=== PATIENT | male | born 1955 | race Caucasian/White ===

== ENCOUNTER 2017-10-02 10:45 | Inpatient (IN) | payer MEDICARE ==
[2017-10-02] MEDS ORDERED: Sodium Chloride 0.9% 10 ML Syringe FLUSH PRN (11:20)
[2017-10-02] MEDS ORDERED: fentaNYL 100 MCG/2 ML SDV IVPUSH ONE ×2 (11:21→13:54)
[2017-10-02] MEDS ORDERED: Ondansetron 4 MG/2 ML SDV IVPUSH ONE (11:21)
--- NOTE | 2017-10-02 11:24 | EDM.PDOC ---
ED HPI GENERAL MEDICAL PROBLEM - General Chief Complaint: Abdominal Pain Stated Complaint: PAIN IN STOMACH AREA MORE ON RIGHT SIDE Time Seen by Provider: 10/02/17 11:16 Source of Information: Reports: Patient, Family, RN Notes Reviewed History Limitations: Reports: No Limitations - History of Present Illness INITIAL COMMENTS - FREE TEXT/NARRATIVE: 62-year-old gentleman presents to the emergency department today with complaint of right lower quadrant pain, he states the pain has been building for the last 3 days initially felt he had food poisoning does have nausea and vomiting but the pain now has localized in the right lower quadrant past surgical history includes hernia repair on the right side. No shortness breath chest pain or fevers Right Lower Abdomen Pain Score (Numeric/FACES): 8 - Related Data Allergies Allergy/AdvReac Type Severity Reaction Status Date / Time codeine Allergy Swelling Verified 10/02/17 11:00 Home Meds: Home Meds Aspirin [[place] Aspirin] 81 mg PO DAILY 10/02/17 [History] Clopidogrel [Plavix] 75 mg PO DAILY 10/02/17 [History] Enalapril [Vasotec] 20 mg PO DAILY 10/02/17 [History] Latanoprost [Xalatan] 2.5 ml OP DAILY 10/02/17 [History] atorvaSTATin [Lipitor] 40 mg PO DAILY 10/02/17 [History] Past Medical History HEENT History: Reports: Other (See Below) Other HEENT History: lageally blind both eyes Cardiovascular History: Reports: High Cholesterol, Hypertension Respiratory History: Reports: PE Musculoskeletal History: Reports: Fracture Neurological History: Reports: CVA - Infectious Disease History Infectious Disease History: Reports: Chicken Pox, Measles, Mumps - Past Surgical History HEENT Surgical History: Reports: Tonsillectomy GI Surgical History: Reports: Colonoscopy, Hernia, Inguinal Social & Family History - Tobacco Use Smoking Status *Q: Never Smoker Second Hand Smoke Exposure: No - Caffeine Use Caffeine Use: Reports: Coffee, Soda - Recreational Drug Use Recreational Drug Use: No ED ROS GENERAL - Review of Systems Review Of Systems: See Below Constitutional: Reports: No Symptoms HEENT: Reports: No Symptoms Respiratory: Reports: No Symptoms Cardiovascular: Reports: No Symptoms GI/Abdominal: Reports: Abdominal Pain, Flatus, Nausea, Vomiting : Reports: No Symptoms Musculoskeletal: Reports: No Symptoms Skin: Reports: No Symptoms ED EXAM, GI/ABD - Physical Exam Exam: See Below Exam Limited By: No Limitations General Appearance: Alert, WD/WN, No Apparent Distress Eyes: Bilateral: Normal Appearance Respiratory/Chest: No Respiratory Distress, Lungs Clear, Normal Breath Sounds, No Accessory Muscle Use, Chest Non-Tender Cardiovascular: Regular Rate, Rhythm, No Murmur GI/Abdominal Exam: Soft, Tender (Tender right lower quadrant), Other (Psoas sign positive, obturator sign positive, heeltap negative) Course - Vital Signs Last Recorded V/S: Last Vital Signs Temp 99.4 F 10/02/17 11:13 Pulse 109 H 10/02/17 11:13 Resp 16 10/02/17 11:13 BP 121/81 10/02/17 11:13 Pulse Ox 97 10/02/17 11:13 - Orders/Labs/Meds Orders: Active Orders 24 hr Category Date Time Status Peripheral IV Care [RC] . DIRECTED Care 10/02/17 11:20 Active UA W/MICROSCOPIC [URIN] Urgent Lab 10/02/17 11:20 Ordered Iopamidol [Isovue-300 (61%)] Med 10/02/17 11:27 Active 141 ml IV . DIRECTED PRN Lactated Ringers [Ringers, Lactated] 1,000 ml Med 10/02/17 11:30 Active IV ASDIRECTED Sodium Chloride 0.9% [Normal Saline] 83 ml Med 10/02/17 11:30 Active IV ASDIRECTED Sodium Chloride 0.9% [Saline Flush] Med 10/02/17 11:20 Active 10 ml FLUSH ASDIRECTED PRN Peripheral IV Insertion Adult [OM.PC] Urgent Oth 10/02/17 11:20 Ordered Medication Orders Lactated Ringer's (Ringers, Lactated) 1,000 mls @ 500 mls/hr IV ASDIRECTED СВЕТЛАНА Last Admin: 10/02/17 11:42 Dose: 500 mls/hr Sodium Chloride (Normal Saline) 83 mls @ 3.5 mls/sec IV ASDIRECTED [facility] Last Admin: 10/02/17 12:00 Dose: 3.5 mls/sec Iopamidol (Isovue-300 (61%)) 141 ml IV . DIRECTED PRN PRN Reason: RADIOLOGY EXAM Stop: 10/03/17 11:28 Last Admin: 10/02/17 12:00 Dose: 141 ml Sodium Chloride (Saline Flush) 10 ml FLUSH ASDIRECTED PRN PRN Reason: Keep Vein Open Last Admin: 10/02/17 11:59 Dose: 10 ml Labs: Laboratory Tests 10/02/17 10/02/17 10/02/17 Range/Units 11:28 11:28 11:28 WBC 22.7 H (4.5-11.0) K/uL RBC 5.05 (4.30-5.90) M/uL Hgb 15.9 H (12.0-15.0) g/dL Hct 45.7 (40.0-54.0) % MCV 91 (80-98) fL MCH 32 H (27-31) pg MCHC 35 (32-36) % Plt Count 233 (150-400) K/uL Neut % (Auto) 85 H (36-66) % Lymph % (Auto) 5 L (24-44) % [place] % (Auto) 10 H (2-6) % Eos % (Auto) 0 L (2-4) % Baso % (Auto) 0 (0-1) % Sodium 138 L (140-148) mmol/L Potassium 3.8 (3.6-5.2) mmol/L Chloride 102 (100-108) mmol/L Carbon Dioxide 25 (21-32) mmol/L Anion Gap 14.8 H (5.0-14.0) mmol/L BUN 20 H (7-18) mg/dL Creatinine 1.1 (0.8-1.3) mg/dL Est Cr Clr Drug Dosing 68.23 mL/min Estimated GFR (MDRD) > 60 (>60) BUN/Creatinine Ratio Not Reportable Glucose 129 H (74-106) mg/dL Lactic Acid 2.4 H (0.4-2.0) mmol/L Calcium 8.5 (8.5-10.1) mg/dL Total Bilirubin 2.0 H (0.2-1.0) mg/dL AST 20 (15-37) U/L ALT 40 (12-78) U/L Alkaline Phosphatase 100 (46-116) U/L Troponin I < 0.017 (0.000-0.056) ng/mL Total Protein 7.8 (6.4-8.2) g/dL Albumin 3.4 (3.4-5.0) g/dL Globulin 4.4 H (2.3-3.5) g/dL Albumin/Globulin Ratio 0.8 L (1.2-2.2) Lipase 54 L (73-393) U/L Meds: Medications Generic Name Dose Route Start Last Admin Trade Name Freq PRN Reason Stop Dose Admin Lactated Ringer's 1,000 mls @ 500 mls/hr 10/02/17 11:30 10/02/17 11:42 Ringers, Lactated IV 500 mls/hr ASDIRECTED СВЕТЛАНА Administration Sodium Chloride 83 mls @ 3.5 mls/sec 10/02/17 11:30 10/02/17 12:00 Normal Saline IV 3.5 mls/sec ASDIRECTED СВЕТЛАНА Administration Iopamidol 141 ml 10/02/17 11:27 10/02/17 12:00 Isovue-300 (61%) IV 10/03/17 11:28 141 ml . DIRECTED PRN Administration RADIOLOGY EXAM Sodium Chloride 10 ml 10/02/17 11:20 10/02/17 11:59 Saline Flush FLUSH 10 ml ASDIRECTED PRN Administration Keep Vein Open Discontinued Medications Generic Name Dose Route Start Last Admin Trade Name Willardq PRN Reason Stop Dose Admin Fentanyl 50 mcg 10/02/17 11:21 10/02/17 11:45 Sublimaze IVPUSH 10/02/17 11:22 50 mcg ONETIME ONE Administration Fentanyl 50 mcg 10/02/17 13:54 Sublimaze IVPUSH 10/02/17 13:55 ONETIME ONE Ondansetron HCl 4 mg 10/02/17 11:21 10/02/17 11:43 Zofran IVPUSH 10/02/17 11:22 4 mg ONETIME ONE Administration Sodium Chloride 10 ml 10/02/17 11:27 Saline Flush FLUSH 10/02/17 11:28 ONETIME ONE Departure - Departure Time of Disposition: 13:57 Disposition: Admitted As Inpatient 67 Condition: Good Clinical Impression: Cholecystitis - Discharge Information Referrals: PCP,None [Primary Care Provider] - Forms: ED Department Discharge - My Orders Last 24 Hours: My Active Orders 10/02/17 11:20 Peripheral IV Care [RC] . DIRECTED UA W/MICROSCOPIC [URIN] Urgent Sodium Chloride 0.9% [Saline Flush] 10 ml FLUSH ASDIRECTED PRN Peripheral IV Insertion Adult [OM.PC] Urgent 10/02/17 11:27 Iopamidol [Isovue-300 (61%)] 141 ml IV . DIRECTED PRN 10/02/17 11:30 Lactated Ringers [Ringers, Lactated] 1,000 ml IV ASDIRECTED Sodium Chloride 0.9% [Normal Saline] 83 ml IV ASDIRECTED - Assessment/Plan Last 24 Hours: My Active Orders 10/02/17 11:20 Peripheral IV Care [RC] . DIRECTED UA W/MICROSCOPIC [URIN] Urgent Sodium Chloride 0.9% [Saline Flush] 10 ml FLUSH ASDIRECTED PRN Peripheral IV Insertion Adult [OM.PC] Urgent 10/02/17 11:27 Iopamidol [Isovue-300 (61%)] 141 ml IV . DIRECTED PRN 10/02/17 11:30 Lactated Ringers [Ringers, Lactated] 1,000 ml IV ASDIRECTED Sodium Chloride 0.9% [Normal Saline] 83 ml IV ASDIRECTED Plan: Assessment Acuity = acute Site and laterality = acute cholecystitis with cholelithiasis impacted neck gallbladder Etiology = impacted stone Manifestations = abdominal pain Location of injury = Home Lab values = WBC elevated at 22.7 consistent leukocytosis lactic acid elevated 2.4 consistent with lactic acidosis total bilirubin elevated at 2.0 consistent with hyperbilirubinemia Plan Called discussed case with Dr. Barclay general surgery he agreed to come and evaluate patient hospital for surgical intervention This note was dictated using [employer] voice recognition software please call with any questions on syntax or grammar.
[2017-10-02] MEDS ORDERED: Sodium Chloride 0.9% 10 ML Syringe FLUSH ONE (11:27)
[2017-10-02] MEDS ORDERED: Iopamidol 612 MG/ML 150 ML Bottle IV PRN (11:27)
[2017-10-02] MEDS ORDERED: Lactated Ringers 1,000 ML IV SCH (11:30)
--- NOTE | 2017-10-02 12:38 | CT ---
Abdomen Pelvis w Cont Total DLP Negative. mGycm. INDICATION: Right lower quadrant pain COMPARISON: None. FINDINGS: Moderately distended gallbladder with wall thickening and surrounding inflammatory change. Findings suspicious for acute cholecystitis. There is minimal high density in the nondependent portio n the bladder could represent a polyp or stone. Common bile duct is normal in caliber. Small left caitie al cyst. Dense calcification of the spleen. Normal appendix. Mildly dilated loop of small bowel in th e low abdomen without transition point is nonspecific. Small amount of free fluid in the pelvis. Smal l fat-containing periumbilical hernia. Arterial calcifications. Tiny right renal cyst. Pleural calcif ication with atelectasis in the lower lungs. Exam otherwise unremarkable. IMPRESSION: Findings suspicious for acute cholecystitis. Right upper quadrant ultrasound may be helpf ul. Nonspecific mildly dilated loop of small bowel in the low abdomen. Free fluid in the pelvis. Findings called to the emergency department at 12:30 PM on 10/01/2017.
--- NOTE | 2017-10-02 13:34 | US ---
Abdomen Ltd INDICATION: ct shows cholecystitis with right lower quadrant p FINDINGS: Normal hepatic echotexture. No intra- or extrahepatic bile duct dilatation. The gallbladder is distended and contains a large impacted stone measuring 2.3 cm in the neck with sludge and additi onal smaller stones. Gallbladder wall thickening measuring 7 mm. Positive sonographic Crain sign. Ao rta and IVC are not well visualized. Pancreas is normal where seen. Survey views of the right kidney are negative for hydronephrosis. IMPRESSION: Acute cholecystitis.
--- NOTE | 2017-10-02 15:00 | PCM.HP ---
H&P History of Present Illness - General Date of Service: 10/02/17 Admit Problem/Dx: Admission Diagnosis/Problem Admission Diagnosis/Problem Acute cholecystitis due to biliary calculus Source of Information: Patient, Provider History Limitations: Reports: No Limitations - History of Present Illness Initial Comments - Free Text/Narative: Garrett presents to the emergency room today with 2 days of progressive right upper quadrant abdominal pain as well as intermittent nausea and vomiting. He initially had mild achy right upper quadrant pain a couple of days ago. This woke him from sleep. He did not take anything to make it better. The pain did eventually go away on its own. It did not radiate when present. Yesterday he had several episodes of nausea and vomiting but did not have much in the way of abdominal pain. Overnight he developed moderately severe right upper quadrant abdominal pain associated with nausea. There was a constant achy pain as well as sharp intermittent pains. The pain did not radiate from the right upper quadrant. Again he did not take anything to make the pain feel better. He has not had anything to eat or drink since yesterday. No subjective fevers or chills. No change in bowel or bladder habits. Workup in the emergency room revealed an elevated white blood cell count on laboratory testing and gallbladder ultrasound suggested acute cholecystitis with a large stone impacted in the neck of the gallbladder. He will be admitted for IV antibiotics, hydration and surgical intervention. Right Lower Abdomen Pain Score (Numeric/FACES): 8 - Related Data Allergies/Adverse Reactions: Allergies Allergy/AdvReac Type Severity Reaction Status Date / Time codeine Allergy Swelling Verified 10/02/17 11:00 Home Medications: Home Meds Aspirin [[place] Aspirin] 81 mg PO DAILY 10/02/17 [History] Clopidogrel [Plavix] 75 mg PO DAILY 10/02/17 [History] Enalapril [Vasotec] 20 mg PO DAILY 10/02/17 [History] Latanoprost [Xalatan] 2.5 ml OP DAILY 10/02/17 [History] atorvaSTATin [Lipitor] 40 mg PO DAILY 10/02/17 [History] Past Medical History HEENT History: Reports: Other (See Below) Other HEENT History: lageally blind both eyes Cardiovascular History: Reports: High Cholesterol, Hypertension Respiratory History: Reports: PE Musculoskeletal History: Reports: Fracture Neurological History: Reports: CVA - Infectious Disease History Infectious Disease History: Reports: Chicken Pox, Measles, Mumps - Past Surgical History HEENT Surgical History: Reports: Tonsillectomy GI Surgical History: Reports: Colonoscopy, Hernia, Inguinal Social & Family History - Family History GI: Reports: Cholelithiasis - Tobacco Use Smoking Status *Q: Never Smoker Second Hand Smoke Exposure: No - Caffeine Use Caffeine Use: Reports: Coffee, Soda - Alcohol Use Alcohol Use History: No - Recreational Drug Use Recreational Drug Use: No H&P Review of Systems - Review of Systems: Review Of Systems: See Below Free Text/Narrative: A complete 12 point review of systems was obtained. Pertinent positives and negatives are noted in the history of present illness. All other systems were reviewed and were negative except as noted. Exam - Exam Exam: See Below - Vital Signs Vital Signs: Last Vital Signs Temp 38.3 C H 10/02/17 13:55 Pulse 82 10/02/17 13:55 Resp 16 10/02/17 13:55 BP 119/60 10/02/17 13:55 Pulse Ox 95 10/02/17 13:55 Weight: 94 kg - Exam Quality Assessment: No: Supplemental Oxygen General: Alert, Oriented, Cooperative. No: Mild Distress HEENT: Conjunctiva Clear, Mucosa Moist & [place]. No: Scleral Icterus Neck: Supple, Trachea Midline. No: Lymphadenopathy Lungs: Clear to Auscultation, Normal Respiratory Effort Cardiovascular: Regular Rate, Regular Rhythm. No: Systolic Murmur GI/Abdominal Exam: Normal Bowel Sounds, Soft, No Distention, Tender (Moderate right upper quadrant tenderness) Back Exam: Full Range of Motion Extremities: No Pedal Edema. No: Increased Warmth Peripheral Pulses: 2+: Dorsalis Pedis (L), Dorsalis Pedis (R) Skin: Warm, Dry Neuro Extensive - Mental Status: Alert, Oriented x3, Nl Response to Commands Neuro Extensive - Motor, Sensory, Reflexes: CN II-XII Intact. No: Dysarthria, Abnormal Motor, Tremor Psychiatric: Alert, Normal Affect - Patient Data Lab Results Last 24 hrs: Laboratory Results - last 24 hr 10/02/17 10/02/17 10/02/17 Range/Units 11:28 11:28 11:28 WBC 22.7 H (4.5-11.0) K/uL RBC 5.05 (4.30-5.90) M/uL Hgb 15.9 H (12.0-15.0) g/dL Hct 45.7 (40.0-54.0) % MCV 91 (80-98) fL MCH 32 H (27-31) pg MCHC 35 (32-36) % Plt Count 233 (150-400) K/uL Neut % (Auto) 85 H (36-66) % Lymph % (Auto) 5 L (24-44) % [place] % (Auto) 10 H (2-6) % Eos % (Auto) 0 L (2-4) % Baso % (Auto) 0 (0-1) % Sodium 138 L (140-148) mmol/L Potassium 3.8 (3.6-5.2) mmol/L Chloride 102 (100-108) mmol/L Carbon Dioxide 25 (21-32) mmol/L Anion Gap 14.8 H (5.0-14.0) mmol/L BUN 20 H (7-18) mg/dL Creatinine 1.1 (0.8-1.3) mg/dL Est Cr Clr Drug Dosing 68.23 mL/min Estimated GFR (MDRD) > 60 (>60) BUN/Creatinine Ratio Not Reportable Glucose 129 H (74-106) mg/dL Lactic Acid 2.4 H (0.4-2.0) mmol/L Calcium 8.5 (8.5-10.1) mg/dL Total Bilirubin 2.0 H (0.2-1.0) mg/dL AST 20 (15-37) U/L ALT 40 (12-78) U/L Alkaline Phosphatase 100 (46-116) U/L Troponin I < 0.017 (0.000-0.056) ng/mL Total Protein 7.8 (6.4-8.2) g/dL Albumin 3.4 (3.4-5.0) g/dL Globulin 4.4 H (2.3-3.5) g/dL Albumin/Globulin Ratio 0.8 L (1.2-2.2) Lipase 54 L (73-393) U/L Result Diagrams: 10/02/17 11:28 10/02/17 11:28 Imaging Impressions Last 24 hrs: Right upper quadrant ultrasound - images personally reviewed - there is evidence for cholelithiasis as well as an enlarged gallbladder with a gallstone lodged in the neck of the gallbladder. Gallbladder wall is thick and there is some pericholecystic fluid present. *Q Meaningful Use (ADM) - VTE *Q VTE Pharmacological Contraindications *Q: Patient Scheduled Surgery - VTE Risk Assess *Q Each Risk Factor Represents 1 Point: None Total Score 1 Point Risk Factors: 0 Each Risk Factor Represents 2 Points: Age 60 - 74 Years, Laparoscopic surgery greater than 45 minutes Total Score 2 Point Risk Factors: 4 Each Risk Factor Represents 3 Points: History of DVT/PE Total Score 3 Point Risk Factors: 3 Each Risk Factor Represents 5 Points: None Total Score 5 Point Risk Factors: 0 Venous Thromboembolism Risk Factor Score *Q: 7 - Problem List (1) Acute cholecystitis due to biliary calculus SNOMED Code(s): 09436003451834 ICD Code: K80.00 - CALCULUS OF GALLBLADDER W ACUTE CHOLECYST W/O OBSTRUCTION Status: Acute Current Visit: Yes (2) History of pulmonary embolism SNOMED Code(s): 036352080 ICD Code: Z86.711 - PERSONAL HISTORY OF PULMONARY EMBOLISM Status: Chronic Current Visit: Yes (3) Cerebrovascular disease SNOMED Code(s): 43516227 ICD Code: I67.9 - CEREBROVASCULAR DISEASE, UNSPECIFIED Status: Chronic Current Visit: Yes Problem List Initiated/Reviewed/Updated: Yes Orders Last 24hrs: Active Orders 24 hr Category Date Time Status Patient Status Manage Transfer [TRANSFER] Routine ADT 10/02/17 14:47 Ordered Peripheral IV Care [RC] . DIRECTED Care 10/02/17 11:20 Active UA W/MICROSCOPIC [URIN] Urgent Lab 10/02/17 11:20 Ordered Iopamidol [Isovue-300 (61%)] Med 10/02/17 11:27 Active 141 ml IV . DIRECTED PRN Lactated Ringers [Ringers, Lactated] 1,000 ml Med 10/02/17 11:30 Active IV ASDIRECTED Sodium Chloride 0.9% [Normal Saline] 83 ml Med 10/02/17 11:30 Active IV ASDIRECTED Sodium Chloride 0.9% [Saline Flush] Med 10/02/17 11:20 Active 10 ml FLUSH ASDIRECTED PRN Peripheral IV Insertion Adult [OM.PC] Urgent Oth 10/02/17 11:20 Ordered Resuscitation Status Routine Resus Stat 10/02/17 14:49 Ordered Medication Orders Lactated Ringer's (Ringers, Lactated) 1,000 mls @ 500 mls/hr IV ASDIRECTED [facility] Last Admin: 10/02/17 11:42 Dose: 500 mls/hr Sodium Chloride (Normal Saline) 83 mls @ 3.5 mls/sec IV ASDIRECTED [facility] Last Admin: 10/02/17 12:00 Dose: 3.5 mls/sec Iopamidol (Isovue-300 (61%)) 141 ml IV . DIRECTED PRN PRN Reason: RADIOLOGY EXAM Stop: 10/03/17 11:28 Last Admin: 10/02/17 12:00 Dose: 141 ml Sodium Chloride (Saline Flush) 10 ml FLUSH ASDIRECTED PRN PRN Reason: Keep Vein Open Last Admin: 10/02/17 11:59 Dose: 10 ml Assessment/Plan Comment:: ASSESSMENT AND PLAN - Acute cholecystitis with cholelithiasis - large impacted stone in the neck of the gallbladder. White blood cell count is elevated but not currently febrile. He would benefit from hydration, IV antibiotics as well as surgical intervention. He appears to be an appropriate surgical candidate. Chronic medical problems have been stable with no recent acute issues. No history of difficulty with anesthesia. He does have a history of postoperative DVT and pulmonary embolism and I believe would benefit from a short course of anticoagulation postoperatively. 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 No recent issues with his lungs and not on long-term anticoagulation. -Consider 10 days of low-dose enoxaparin after the hospital stay History of cerebrovascular disease - patient reports history of a stroke that led to loss of peripheral vision. This happened about 4 years ago and he has been stable since that time. He is currently on dual antiplatelet therapy. -Continue aspirin -Hold clopidogrel tomorrow and restart as soon as possible after surgery -Continue VIRGILIO inhibitor for blood pressure control Maintenance issues - - DVT prophylaxis - mechanical with upcoming surgery - GI prophylaxis - not indicated - Nutrition - clear liquids this afternoon, nothing by mouth after midnight - Boyle catheter - not indicated CODE STATUS - full code Admission justification - This patient will be admitted for inpatient services and is medically appropriate meeting medical necessity for inpatient admission as outlined in my documentation. I reasonably expect the patient will require inpatient services that span a period time over 2 midnights. I reasonably expect this patient to be discharged or transferred within 96 hours after admission to the [facility]. Disposition - I would anticipate discharged home in a couple of days Primary care physician - no local primary care Alon Borden M.D.
[2017-10-02] MEDS ORDERED: oxyCODONE 5 MG Tab PO PRN (15:38)
[2017-10-02] MEDS ORDERED: Acetaminophen 325 MG Tab PO PRN (15:38)
[2017-10-02] MEDS ORDERED: Ondansetron 4 MG Tab.DIS PO PRN (15:38)
[2017-10-02] MEDS: HYDROmorphone 0.5 MG/0.5 ML Syringe IVPUSH PRN ×2 (16:27→21:45)
[2017-10-02] MEDS: Piperacillin/Tazobactam/Dext 3.375 GM in Premix Bag 1 BAG IV SCH ×2 (16:51→21:44)
[2017-10-02] MEDS: Latanoprost 0.005% Ophth Soln 2.5 ML Bottle EYERT SCH (18:11)
[2017-10-02] MEDS: Sodium Chloride 0.9% 1,000 ML IV SCH (21:44)
[2017-10-03] MEDS: Piperacillin/Tazobactam/Dext 3.375 GM in Premix Bag 1 BAG IV SCH ×4 (03:48→22:15)
[2017-10-03] MEDS: HYDROmorphone 0.5 MG/0.5 ML Syringe IVPUSH PRN (07:25)
--- NOTE | 2017-10-03 08:33 | PN ---
DATE OF SERVICE: 10/03/2017 SUBJECTIVE: Garrett is n.p.o. He will be having a cholecystectomy early afternoon today. Temp max 101.9. States his pain is controlled. He is using Dilaudid for pain. Currently on IV antibiotics. REVIEW OF SYSTEMS: Remainder of review of systems negative for any pertinent positives or negatives. OBJECTIVE: GENERAL: Garrett Cameron is a 62-year-old male. He is alert and orientated. VITAL SIGNS: TPR 97.8, 67, 16. Blood pressure 99/49. HEENT: Negative. He is legally blind; has no peripheral vision. He can see something is right in front of him. This occurred after a stroke. NECK: Supple. HEART: Regular rate and rhythm. LUNGS: Clear. ABDOMEN: Tenderness in the right upper quadrant. Slightly distended. EXTREMITIES: Without peripheral edema. Full range of motion. NEURO: Intact. PSYCHIATRIC: Mood and affect appropriate. SKIN: Without rash. ASSESSMENT: Cholecystitis. Bilirubin is 2.2. PLAN: Scheduled for laparoscopic, possible laparotomy, cholecystectomy. General anesthesia. Case to follow today. Remain n.p.o. We will evaluate p.r.n. or in a.m. Chiquita Whitney PA-C /[id number]
[2017-10-03] MEDS: atorvaSTATin 20 MG Tab PO SCH ×2 (10:00→10:35)
[2017-10-03] MEDS: Aspirin 81 MG Tab.EC PO SCH ×2 (10:01→10:36)
--- NOTE | 2017-10-03 10:22 | PCM.PN ---
- General Info Date of Service: 10/03/17 Functional Status: Reports: Pain Controlled - Review of Systems General: Reports: Fever Gastrointestinal: Reports: Abdominal Pain Systems Review Comment:: Patient did have a fever overnight but no acute events. Still has mild to moderate right upper quadrant pain which is stable compared to yesterday. No nausea or vomiting. White blood cell count has improved from yesterday. Tolerating current antibiotics. Surgical intervention planned for later in the day. - Patient Data Vitals - Most Recent: Last Vital Signs Temp 36.6 C 10/03/17 07:00 Pulse 67 10/03/17 07:00 Resp 16 10/03/17 07:00 BP 99/49 L 10/03/17 07:00 Pulse Ox 93 L 10/03/17 07:00 Weight - Most Recent: 94 kg I&O - Last 24 Hours: Intake & Output 10/02/17 10/03/17 10/03/17 22:59 06:59 14:59 Intake Total 100 1030 Output Total 300 300 Balance -200 730 Lab Results Last 24 Hours: Laboratory Results - last 24 hr 10/02/17 10/02/17 10/02/17 Range/Units 11:28 11:28 11:28 WBC 22.7 H (4.5-11.0) K/uL RBC 5.05 (4.30-5.90) M/uL Hgb 15.9 H (12.0-15.0) g/dL Hct 45.7 (40.0-54.0) % MCV 91 (80-98) fL MCH 32 H (27-31) pg MCHC 35 (32-36) % Plt Count 233 (150-400) K/uL Neut % (Auto) 85 H (36-66) % Lymph % (Auto) 5 L (24-44) % [place] % (Auto) 10 H (2-6) % Eos % (Auto) 0 L (2-4) % Baso % (Auto) 0 (0-1) % Sodium 138 L (140-148) mmol/L Potassium 3.8 (3.6-5.2) mmol/L Chloride 102 (100-108) mmol/L Carbon Dioxide 25 (21-32) mmol/L Anion Gap 14.8 H (5.0-14.0) mmol/L BUN 20 H (7-18) mg/dL Creatinine 1.1 (0.8-1.3) mg/dL Est Cr Clr Drug Dosing 68.23 mL/min Estimated GFR (MDRD) > 60 (>60) BUN/Creatinine Ratio Not Reportable Glucose 129 H (74-106) mg/dL Lactic Acid 2.4 H (0.4-2.0) mmol/L Calcium 8.5 (8.5-10.1) mg/dL Total Bilirubin 2.0 H (0.2-1.0) mg/dL AST 20 (15-37) U/L ALT 40 (12-78) U/L Alkaline Phosphatase 100 (46-116) U/L Troponin I < 0.017 (0.000-0.056) ng/mL Total Protein 7.8 (6.4-8.2) g/dL Albumin 3.4 (3.4-5.0) g/dL Globulin 4.4 H (2.3-3.5) g/dL Albumin/Globulin Ratio 0.8 L (1.2-2.2) Lipase 54 L (73-393) U/L Urine Color Urine Appearance Urine pH (4.5-8.0) Ur Specific [place] (1.008-1.030) Urine Protein (NEGATIVE) mg/dL Urine Glucose (UA) (NEGATIVE) mg/dL Urine Ketones (NEGATIVE) mg/dL Urine Occult Blood (NEGATIVE) Urine Nitrite (NEGAITVE) Urine Bilirubin (NEGATIVE) Urine Urobilinogen (NORMAL) mg/dL Ur Leukocyte Esterase (NEGATIVE) Urine RBC (0-5) Urine WBC (0-5) Ur Epithelial Cells Amorphous Sediment Urine Bacteria Urine Mucus 10/02/17 10/03/17 10/03/17 Range/Units 15:24 04:00 04:00 WBC 16.1 H (4.5-11.0) K/uL RBC 4.25 L (4.30-5.90) M/uL Hgb 13.2 D (12.0-15.0) g/dL Hct 39.2 L (40.0-54.0) % MCV 92 (80-98) fL MCH 31 (27-31) pg MCHC 34 (32-36) % Plt Count 177 (150-400) K/uL Neut % (Auto) (36-66) % Lymph % (Auto) (24-44) % [place] % (Auto) (2-6) % Eos % (Auto) (2-4) % Baso % (Auto) (0-1) % Sodium 139 L (140-148) mmol/L Potassium 3.6 (3.6-5.2) mmol/L Chloride 103 (100-108) mmol/L Carbon Dioxide 26 (21-32) mmol/L Anion Gap 13.6 (5.0-14.0) mmol/L BUN 24 H (7-18) mg/dL Creatinine 1.2 (0.8-1.3) mg/dL Est Cr Clr Drug Dosing 62.54 mL/min Estimated GFR (MDRD) > 60 (>60) BUN/Creatinine Ratio Glucose 105 (74-106) mg/dL Lactic Acid (0.4-2.0) mmol/L Calcium 7.5 L (8.5-10.1) mg/dL Total Bilirubin 2.2 H (0.2-1.0) mg/dL AST 21 (15-37) U/L ALT 28 (12-78) U/L Alkaline Phosphatase 73 (46-116) U/L Troponin I (0.000-0.056) ng/mL Total Protein 5.9 L (6.4-8.2) g/dL Albumin 2.5 L (3.4-5.0) g/dL Globulin 3.4 (2.3-3.5) g/dL Albumin/Globulin Ratio 0.7 L (1.2-2.2) Lipase (73-393) U/L Urine Color Yellow Urine Appearance Clear Urine pH 7.0 (4.5-8.0) Ur Specific [place] 1.005 L (1.008-1.030) Urine Protein Negative (NEGATIVE) mg/dL Urine Glucose (UA) Normal (NEGATIVE) mg/dL Urine Ketones Negative (NEGATIVE) mg/dL Urine Occult Blood Negative (NEGATIVE) Urine Nitrite Negative (NEGAITVE) Urine Bilirubin Small (NEGATIVE) Urine Urobilinogen 1 (NORMAL) mg/dL Ur Leukocyte Esterase Negative (NEGATIVE) Urine RBC 0-5 (0-5) Urine WBC 0-5 (0-5) Ur Epithelial Cells Rare Amorphous Sediment Not seen Urine Bacteria Not seen Urine Mucus Not seen Med Orders - Current: Current Medications Acetaminophen (Tylenol) 650 mg PO Q4H PRN PRN Reason: Pain (Mild 1-3)/fever Last Admin: 10/02/17 16:14 Dose: 650 mg Aspirin (Halfprin) 81 mg PO DAILY [facility] Last Admin: 10/03/17 10:01 Dose: 81 mg Atorvastatin Calcium (Lipitor) 40 mg PO DAILY [facility] Enalapril Maleate (Vasotec) 20 mg PO DAILY [facility] Hydromorphone HCl (Dilaudid) 0.5 - 1 mg IVPUSH Q2H PRN PRN Reason: Pain (severe 7-10) Last Admin: 10/03/17 07:25 Dose: 0.5 mg Piperacillin/Tazobactam/ (Dextrose 3.375 gm/ Premix) 50 mls @ 100 mls/hr IV Q6H [facility] Last Admin: 10/03/17 03:48 Dose: 100 mls/hr Sodium Chloride (Normal Saline) 1,000 mls @ 75 mls/hr IV ASDIRECTED [facility] Last Admin: 10/02/17 21:44 Dose: 75 mls/hr Latanoprost (Xalatan 0.005% Ophth Soln) 0 ml EYERT QPM [facility] Last Admin: 10/02/17 18:11 Dose: Not Given Ondansetron HCl (Zofran Odt) 4 mg PO Q6H PRN PRN Reason: Nausea able to take PO Oxycodone HCl (Oxycodone) 5 mg PO Q4H PRN PRN Reason: Pain (moderate 4-6) Senna/Docusate Sodium (Senna Plus) 1 tab PO BID PRN PRN Reason: Constipation Discontinued Medications Fentanyl (Sublimaze) 50 mcg IVPUSH ONETIME ONE Stop: 10/02/17 11:22 Last Admin: 10/02/17 11:45 Dose: 50 mcg Fentanyl (Sublimaze) 50 mcg IVPUSH ONETIME ONE Stop: 10/02/17 13:55 Last Admin: 10/02/17 14:02 Dose: 50 mcg Lactated Ringer's (Ringers, Lactated) 1,000 mls @ 500 mls/hr IV ASDIRECTED [facility] Last Admin: 10/02/17 11:42 Dose: 500 mls/hr Sodium Chloride (Normal Saline) 83 mls @ 3.5 mls/sec IV ASDIRECTED [facility] Last Admin: 10/02/17 12:00 Dose: 3.5 mls/sec Iopamidol (Isovue-300 (61%)) 141 ml IV . DIRECTED PRN PRN Reason: RADIOLOGY EXAM Stop: 10/03/17 11:28 Last Admin: 10/02/17 12:00 Dose: 141 ml Ondansetron HCl (Zofran) 4 mg IVPUSH ONETIME ONE Stop: 10/02/17 11:22 Last Admin: 10/02/17 11:43 Dose: 4 mg Sodium Chloride (Saline Flush) 10 ml FLUSH ASDIRECTED PRN PRN Reason: Keep Vein Open Last Admin: 10/02/17 11:59 Dose: 10 ml Sodium Chloride (Saline Flush) 10 ml FLUSH ONETIME ONE Stop: 10/02/17 11:28 Last Admin: 10/02/17 14:05 Dose: 10 ml - Exam Quality Assessment: No: Supplemental Oxygen General: Alert, Oriented, Cooperative, No Acute Distress Neck: Supple Lungs: Normal Respiratory Effort GI/Abdominal Exam: No Distention Extremities: No Pedal Edema Psy/Mental Status: Alert, Normal Affect - Problem List & Annotations (1) Acute cholecystitis due to biliary calculus SNOMED Code(s): 86066589343545 Code(s): K80.00 - CALCULUS OF GALLBLADDER W ACUTE CHOLECYST W/O OBSTRUCTION Status: Acute Current Visit: Yes (2) History of pulmonary embolism SNOMED Code(s): 153710260 Code(s): Z86.711 - PERSONAL HISTORY OF PULMONARY EMBOLISM Status: Chronic Current Visit: Yes (3) Cerebrovascular disease SNOMED Code(s): 18076905 Code(s): I67.9 - CEREBROVASCULAR DISEASE, UNSPECIFIED Status: Chronic Current Visit: Yes - Problem List Review Problem List Initiated/Reviewed/Updated: Yes - My Orders Last 24 Hours: My Active Orders 10/02/17 14:49 Resuscitation Status Routine 10/02/17 15:38 Patient Status [ADT] Routine Intake and Output [RC] QSHIFT Notify Provider Consults [RC] ASDIRECTED Notify Provider Vital Signs [RC] ASDIRECTED Oxygen Therapy [RC] PRN Up ad Saray [RC] ASDIRECTED VTE/DVT Education [RC] Per Unit Routine Vital Signs [RC] Q4H Consult to Physician [CONS] Routine Acetaminophen [Tylenol] 650 mg PO Q4H PRN Docusate Sodium/Sennosides [Senna Plus] 1 tab PO BID PRN HYDROmorphone [Dilaudid] 0.5 - 1 mg IVPUSH Q2H PRN Ondansetron [Zofran ODT] 4 mg PO Q6H PRN oxyCODONE 5 mg PO Q4H PRN Antiembolic Hose [OM.PC] Per Unit Routine VTE Pharmacological Contraindications [AST] Per Unit Routine 10/02/17 16:00 Piperacillin/Tazobactam/Dext [Zosyn in Dextrose Iso-Osmotic 3.375 GM] 3.375 gm Premix Bag 1 bag IV Q6H 10/02/17 17:00 Latanoprost [Xalatan 0.005% Ophth Soln] 0 ml EYERT QPM 10/02/17 22:00 Sodium Chloride 0.9% [Normal Saline] 1,000 ml IV ASDIRECTED 10/03/17 09:00 Aspirin [Halfprin] 81 mg PO DAILY Enalapril [Vasotec] 20 mg PO DAILY atorvaSTATin [Lipitor] 40 mg PO DAILY 10/03/17 Breakfast Nothing per Oral After Midnight Diet [DIET] - Plan Plan:: ASSESSMENT AND PLAN - Acute cholecystitis with cholelithiasis - temperatures are better this morning white count is down. Still having a fair amount of pain. Surgery planned later in the day. 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 No recent issues with his lungs and not on long-term anticoagulation. -Consider 10 days of low-dose enoxaparin after the hospital stay History of cerebrovascular disease - patient reports history of a stroke that led to loss of peripheral vision. This happened about 4 years ago and he has been stable since that time. He is currently on dual antiplatelet therapy. Blood pressure on the low side and antihypertensive medication will be held. -Continue aspirin -Hold clopidogrel today and restart as soon as possible after surgery -VIRGILIO inhibitor will be on hold with low normal blood pressure Maintenance issues - - DVT prophylaxis - mechanical with upcoming surgery - GI prophylaxis - not indicated - Nutrition - clear liquids this afternoon, nothing by mouth after midnight Disposition - I would anticipate discharged home in one or maybe 2 days Alon Borden M.D.
[2017-10-03] MEDS: Enalapril 5 MG Tab PO SCH (10:34)
[2017-10-03] MEDS ORDERED: Ondansetron 4 MG/2 ML SDV ONE (12:18)
[2017-10-03] MEDS ORDERED: fentaNYL 250 MCG/5 ML SDV ONE (12:18)
[2017-10-03] MEDS ORDERED: Rocuronium 50 MG/5 ML Vial ONE (12:18)
[2017-10-03] MEDS ORDERED: Propofol 200 MG/20 ML SDV ONE (12:18)
[2017-10-03] MEDS ORDERED: Neostigmine Methylsulfate 1 MG/ML 5 ML Syringe ONE (12:18)
[2017-10-03] MEDS ORDERED: Glycopyrrolate 0.2 MG/ML 5 ML MDV ONE (12:18)
[2017-10-03] MEDS ORDERED: Succinylcholine 200 MG/10 ML MDV ONE (12:18)
[2017-10-03] MEDS ORDERED: Dexamethasone 4 MG/ML SDV ONE (12:18)
[2017-10-03] MEDS: Sodium Chloride 0.9% 1,000 ML IV SCH (12:33)
[2017-10-03] MEDS ORDERED: Bupivacaine 0.5%/EPINEPHrine 1:200,000 50 ML MDV ONE (13:04)
[2017-10-03] MEDS ORDERED: Ropivacaine 45 ML, Dexamethasone 8 MG, EPINEPHrine 0.4 MG, Sodium Chloride 0.9% 32.6 ML NERVRT SCH ×4 (14:00)
[2017-10-03] MEDS ORDERED: HYDROmorphone/Normal Saline 15 MG/30 ML PCA IV PRN (14:48)
[2017-10-03] MEDS ORDERED: Naloxone 0.4 MG/ML SDV IV PRN (14:50)
[2017-10-03] MEDS ORDERED: Dextrose 5%-Lactated Ringers 1,000 ML IV SCH (16:15)
[2017-10-03] MEDS: Latanoprost 0.005% Ophth Soln 2.5 ML Bottle EYERT SCH (17:03)
[2017-10-03] MEDS ORDERED: Pantoprazole 40 MG Vial IV SCH (18:00)
[2017-10-03] MEDS: Acetaminophen/oxyCODONE 325-5 MG Tab PO PRN (19:22)
[2017-10-03] MEDS: Enoxaparin 40 MG/0.4 ML Syringe SUBCUT SCH (20:25)
[2017-10-04] MEDS: Acetaminophen/oxyCODONE 325-5 MG Tab PO PRN ×3 (01:47→17:50)
[2017-10-04] MEDS: Piperacillin/Tazobactam/Dext 3.375 GM in Premix Bag 1 BAG IV SCH ×4 (03:11→21:29)
[2017-10-04] MEDS: Enoxaparin 40 MG/0.4 ML Syringe SUBCUT SCH ×2 (07:21→21:30)
[2017-10-04] MEDS ORDERED: Dextrose 5%-Lactated Ringers 1,000 ML IV SCH (07:37)
[2017-10-04] MEDS: atorvaSTATin 20 MG Tab PO SCH (08:59)
[2017-10-04] MEDS: Aspirin 81 MG Tab.EC PO SCH (09:00)
--- NOTE | 2017-10-04 09:04 | PN ---
DATE OF SERVICE: 10/04/2017 SUBJECTIVE: Garrett is postop day #1. He reports his pain is controlled. He feels better than he did prior to his surgery. He has been up ambulating and tolerating a full liquid diet and plans to advance to regular this morning. Vital signs have been stable. OBJECTIVE: GENERAL: Garrtet Cameron is a 62-year-old male. He is alert and orientated. VITAL SIGNS: TPR 95.5, 51, 16, and blood pressure is 105/64. HEENT: Negative. NECK: Supple. HEART: Regular rate and rhythm. LUNGS: Clear. ABDOMEN: Dressings dry and intact. MAYA drain is intact and draining a light pink serosanguineous drainage of 75 mL. EXTREMITIES: Without peripheral edema. ASSESSMENT: Diagnostic laparoscopy with cholecystectomy, drainage of pericholecystic abscess and repair of incarcerated umbilical hernia for acute necrotizing cholecystitis and cholelithiasis, pericholecystic abscess and incarcerated umbilical hernia. Date of surgery, 10/03/2017. PLAN: 1. Percocet 5/325 mg 1 to 2 q.4 hours p.r.n. pain. 2. 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 3. Regular diet. 4. Decrease IV to 100 mL/hour. May saline lock if oral intake adequate. 5. Discontinue IV Protonix. Change to Protonix 40 mg at bedtime. 6. Communication order to teach the patient how to give himself Lovenox when he is discharged. 7. Good pulmonary toilet. 8. We will evaluate p.r.n. or in a.m. Chiquita Whitney PA-C /[phone]
--- NOTE | 2017-10-04 10:59 | PCM.PN ---
- General Info Date of Service: 10/04/17 Functional Status: Reports: Pain Controlled, Tolerating Diet, Ambulating - Review of Systems General: Denies: Fever Gastrointestinal: Reports: Abdominal Pain Systems Review Comment:: no acute events overnight. Mild residual right upper quadrant pain, especially with coughing or deep breathing. In general pain is much better today. No fevers. tolerating diet. He has been up and walking around. - Patient Data Vitals - Most Recent: Last Vital Signs Temp 35.2 C 10/04/17 07:00 Pulse 47 L 10/04/17 07:00 Resp 18 10/04/17 07:00 BP 109/62 10/04/17 07:00 Pulse Ox 92 L 10/04/17 07:00 Weight - Most Recent: 94 kg I&O - Last 24 Hours: Intake & Output 10/03/17 10/04/17 10/04/17 22:59 06:59 14:59 Intake Total 983 1123 520 Output Total 245 530 Balance 738 593 520 Lab Results Last 24 Hours: Laboratory Results - last 24 hr 10/03/17 10/03/17 10/04/17 Range/Units 16:10 16:10 03:45 WBC 16.7 H (4.5-11.0) K/uL RBC 4.35 (4.30-5.90) M/uL Hgb 13.6 (12.0-15.0) g/dL Hct 40.4 (40.0-54.0) % MCV 93 (80-98) fL MCH 31 (27-31) pg MCHC 34 (32-36) % Plt Count 169 (150-400) K/uL Neut % (Auto) 95 H (36-66) % Lymph % (Auto) 3 L (24-44) % [place] % (Auto) 2 (2-6) % Eos % (Auto) 0 L (2-4) % Baso % (Auto) 0 (0-1) % Total Bilirubin 0.9 D (0.2-1.0) mg/dL Alkaline Phosphatase 80 (46-116) U/L [place] Results Last 24 Hours: Microbiology 10/03/17 15:08 Gram Stain - Final Abdomen - Drainage 10/03/17 15:08 Gram Stain - Final Abdomen - Drainage Med Orders - Current: Current Medications Aspirin (Halfprin) 81 mg PO DAILY [facility] Last Admin: 10/04/17 09:00 Dose: 81 mg Atorvastatin Calcium (Lipitor) 40 mg PO DAILY [facility] Last Admin: 10/04/17 08:59 Dose: 40 mg Enalapril Maleate (Vasotec) 20 mg PO DAILY [facility] Last Admin: 10/03/17 10:34 Dose: Not Given Enoxaparin Sodium (Lovenox) 40 mg SUBCUT Q12H [facility] Last Admin: 10/04/17 07:21 Dose: 40 mg Piperacillin/Tazobactam/ (Dextrose 3.375 gm/ Premix) 50 mls @ 100 mls/hr IV Q6H [facility] Last Admin: 10/04/17 03:11 Dose: 100 mls/hr Dextrose/Lactated Ringer's (Dextrose 5%-Lactated Ringers) 1,000 mls @ 100 mls/ hr IV ASDIRECTED [facility] Latanoprost (Xalatan 0.005% Ophth Soln) 0 ml EYERT QPM [facility] Last Admin: 10/03/17 17:03 Dose: 1 drop Ondansetron HCl (Zofran Odt) 4 mg PO Q6H PRN PRN Reason: Nausea able to take PO Oxycodone/Acetaminophen (Percocet 325-5 Mg) 1 - 2 tab PO Q4H PRN PRN Reason: PAIN Last Admin: 10/04/17 05:15 Dose: 2 tab Pantoprazole Sodium (Protonix) 40 mg PO BEDTIME [facility] Discontinued Medications Acetaminophen (Tylenol) 650 mg PO Q4H PRN PRN Reason: Pain (Mild 1-3)/fever Last Admin: 10/02/17 16:14 Dose: 650 mg Bupivacaine HCl/Epinephrine Bitart (Marcaine 0.5%/Epinephrine 1:200,000) Confirm Administered Dose 50 ml .ROUTE .STK-MED ONE Stop: 10/03/17 13:05 Last Admin: 10/03/17 15:16 Dose: 15 ml Ropivacaine 45 ml/Dexamethasone 8 mg/Epinephrine HCl 0.4 mg/ Sodium Chloride 32.6 ml 0 ml NERVRT ASDIRECTED [facility] Last Admin: 10/03/17 14:16 Dose: 80 syringe Dexamethasone (Dexamethasone) Confirm Administered Dose 4 mg .ROUTE .STK-MED ONE Stop: 10/03/17 12:19 Fentanyl (Sublimaze) 50 mcg IVPUSH ONETIME ONE Stop: 10/02/17 11:22 Last Admin: 10/02/17 11:45 Dose: 50 mcg Fentanyl (Sublimaze) 50 mcg IVPUSH ONETIME ONE Stop: 10/02/17 13:55 Last Admin: 10/02/17 14:02 Dose: 50 mcg Fentanyl (Sublimaze) Confirm Administered Dose 250 mcg .ROUTE .STK-MED ONE Stop: 10/03/17 12:19 Glycopyrrolate (Robinul) Confirm Administered Dose 1 mg .ROUTE .STK-MED ONE Stop: 10/03/17 12:19 Hydromorphone HCl (Dilaudid) 0.5 - 1 mg IVPUSH Q2H PRN PRN Reason: Pain (severe 7-10) Last Admin: 10/03/17 07:25 Dose: 0.5 mg Hydromorphone HCl (Dilaudid Econometrician 15 Mg In Ns 30 Ml) 0 mg IV ASDIRECTED PRN; Protocol PRN Reason: Pain Lactated Ringer's (Ringers, Lactated) 1,000 mls @ 500 mls/hr IV ASDIRECTED [facility] Last Admin: 10/02/17 11:42 Dose: 500 mls/hr Sodium Chloride (Normal Saline) 83 mls @ 3.5 mls/sec IV ASDIRECTED [facility] Last Admin: 10/02/17 12:00 Dose: 3.5 mls/sec Sodium Chloride (Normal Saline) 1,000 mls @ 75 mls/hr IV ASDIRECTED [facility] Last Admin: 10/03/17 12:33 Dose: 75 mls/hr Dextrose/Lactated Ringer's (Dextrose 5%-Lactated Ringers) 1,000 mls @ 150 mls/ hr IV ASDIRECTED [facility] Last Admin: 10/03/17 16:51 Dose: 150 mls/hr Iopamidol (Isovue-300 (61%)) 141 ml IV . DIRECTED PRN PRN Reason: RADIOLOGY EXAM Stop: 10/03/17 11:28 Last Admin: 10/02/17 12:00 Dose: 141 ml Naloxone HCl (Narcan) 0.1 mg IV ASDIRECTED PRN PRN Reason: decreased respiratory rate Neostigmine Methylsulfate (Neostigmine) Confirm Administered Dose 5 mg .ROUTE .STK-MED ONE Stop: 10/03/17 12:19 Ondansetron HCl (Zofran) 4 mg IVPUSH ONETIME ONE Stop: 10/02/17 11:22 Last Admin: 10/02/17 11:43 Dose: 4 mg Ondansetron HCl (Zofran) Confirm Administered Dose 4 mg .ROUTE .STK-MED ONE Stop: 10/03/17 12:19 Pantoprazole Sodium (Protonix Iv) 40 mg IV Q24H [facility] Last Admin: 10/03/17 18:34 Dose: 40 mg Propofol (Diprivan 20 Ml) Confirm Administered Dose 200 mg .ROUTE .STK-MED ONE Stop: 10/03/17 12:19 Rocuronium [place] (Zemuron) Confirm Administered Dose 50 mg .ROUTE .STK-MED ONE Stop: 10/03/17 12:19 Sodium Chloride (Saline Flush) 10 ml FLUSH ASDIRECTED PRN PRN Reason: Keep Vein Open Last Admin: 10/02/17 11:59 Dose: 10 ml Sodium Chloride (Saline Flush) 10 ml FLUSH ONETIME ONE Stop: 10/02/17 11:28 Last Admin: 10/02/17 14:05 Dose: 10 ml Succinylcholine Chloride (Quelicin) Confirm Administered Dose 200 mg .ROUTE .STK -MED ONE Stop: 10/03/17 12:19 - Exam Quality Assessment: No: Supplemental Oxygen General: Alert, Oriented, Cooperative, No Acute Distress Neck: Supple Lungs: Normal Respiratory Effort GI/Abdominal Exam: Soft, No Distention Extremities: No Pedal Edema Wound/Incisions: Healing Well Psy/Mental Status: Alert, Normal Affect - Problem List & Annotations (1) Acute cholecystitis due to biliary calculus SNOMED Code(s): 86824762467104 Code(s): K80.00 - CALCULUS OF GALLBLADDER W ACUTE CHOLECYST W/O OBSTRUCTION Status: Acute Current Visit: Yes (2) History of pulmonary embolism SNOMED Code(s): 376673442 Code(s): Z86.711 - PERSONAL HISTORY OF PULMONARY EMBOLISM Status: Chronic Current Visit: Yes (3) Cerebrovascular disease SNOMED Code(s): 84021475 Code(s): I67.9 - CEREBROVASCULAR DISEASE, UNSPECIFIED Status: Chronic Current Visit: Yes - Problem List Review Problem List Initiated/Reviewed/Updated: Yes - Plan Plan:: ASSESSMENT AND PLAN - Acute cholecystitis with cholelithiasis - status post cholecystectomy yesterday. Clinically doing well at this point. 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 No recent issues with his lungs and not on long-term anticoagulation. -Consider 8 days of low-dose enoxaparin after the hospital stay History of cerebrovascular disease - patient reports history of a stroke that led to loss of peripheral vision. This happened about 4 years ago and he has been stable since that time. He is currently on dual antiplatelet therapy. Blood pressure on the low side and antihypertensive medication will be held. -Continue aspirin -restart clopidogrel -VIRGILIO inhibitor will be on hold with low normal blood pressure Maintenance issues - - DVT prophylaxis - start enoxaparin - GI prophylaxis - not indicated - Nutrition - advance diet as tolerated Disposition - I would anticipate discharged home tomorrow Alon Borden M.D.
[2017-10-04] MEDS: Latanoprost 0.005% Ophth Soln 2.5 ML Bottle EYERT SCH (16:39)
[2017-10-04] MEDS ORDERED: Pantoprazole 40 MG Tab.CR PO SCH (21:00)
[2017-10-05] MEDS: Piperacillin/Tazobactam/Dext 3.375 GM in Premix Bag 1 BAG IV SCH ×2 (03:26→09:13)
[2017-10-05] MEDS: Acetaminophen/oxyCODONE 325-5 MG Tab PO PRN ×2 (03:35→07:53)
[2017-10-05] MEDS: Enoxaparin 40 MG/0.4 ML Syringe SUBCUT SCH (07:54)
[2017-10-05] MEDS: atorvaSTATin 20 MG Tab PO SCH (08:01)
[2017-10-05] MEDS: Aspirin 81 MG Tab.EC PO SCH (08:01)
[2017-10-05] MEDS: Enalapril 5 MG Tab PO SCH (08:01)
--- NOTE | 2017-10-05 08:33 | DISCH ---
ADMISSION DIAGNOSES: 1. Acute cholecystitis. 2. Hypertension. 3. Hypercholesterolemia. 4. 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 5. History of pulmonary embolism. DISCHARGE DIAGNOSES: Diagnostic laparoscopy with cholecystectomy, drainage of pericholecystic abscess and repair of incarcerated umbilical hernia for acute necrotizing cholecystitis and cholelithiasis, pericholecystic abscess, incarcerated umbilical hernia. Date of surgery 10/03/2017. HISTORY: Garrett Cameron is a 62-year-old male who presented to the emergency department with abdominal pain after preoperative evaluation and discussion of possible risks and possible complications, he wished to proceed with surgical procedure. HOSPITAL COURSE: Garrett had his surgery on 10/03/2017. He had no operative complications. On postoperative day #1, he was started on oral pain medication, regular diet and postoperative day #2, he was able to be discharged to home. Vital signs stable. Pain management, oral intake adequate. OBJECTIVE: GENERAL: Garrett Cameron is a 62-year-old male. VITAL SIGNS: Height is 5 feet and 8.11 inches. Weight is 207 pounds. TPR 95.6, 59, 16. Blood pressure 122/74. HEENT: Negative. NECK: Supple. HEART: Regular rate and rhythm. LUNGS: Clear. ABDOMEN: Incisions look good, 4x4 will be discontinued prior to discharge. Abdominal binder has been on. EXTREMITIES: Without peripheral edema. DISPOSITION: Discharged to home. CONDITION: Stable and improving. FOLLOWUP: Followup appointment with Chiquita Whitney PA-C on 10/12/2017 at 10:15 a.m. HOME MEDICATIONS: 1. Percocet 5/325 mg one to two every 4 hours p.r.n. pain #40. 2. Augmentin 875/125 mg one tablet p.o. b.i.d. #14. 3. Lovenox 100 mg subcu daily #7 doses. 4. Milk of magnesia 30 mL to take one daily p.r.n. constipation. 5. He is to resume his aspirin 81 mg daily, Plavix 75 mg oral daily, Vasotec 20 mg oral daily, latanoprost 2.5 mL ophthalmic daily and Lipitor 40 mg oral daily. DIET: Usual diet as tolerated, drink 8 to 10 glasses of water a day. ACTIVITY: No lifting greater than 10 pounds for 2 weeks. Other activity, walk at least 6 times daily inside your home. Driving, do not drive while on pain medication. Shower/bathing, may shower. DISCHARGE INSTRUCTIONS: Notify provider if any fever, increased pain, nausea, or vomiting. Keep site clean and dry. Wear abdominal binder for 2 weeks and then as tolerated. Special instruction, use incentive spirometer 10 times every hour while awake.
[2017-10-05] MEDS ORDERED: Latanoprost 0.005% Ophth Soln 2.5 ML Bottle EYERT SCH (09:00)
--- NOTE | 2017-10-12 09:08 | OR ---
DATE OF PROCEDURE: 10/03/2017 PREOPERATIVE DIAGNOSES: Acute cholecystitis and cholelithiasis. POSTOPERATIVE DIAGNOSES: 1. Acute necrotizing cholecystitis and cholelithiasis. 2. Pericholecystic abscess. 3. Incarcerated umbilical hernia. OPERATIVE PROCEDURES: Diagnostic laparoscopy with; 1. Cholecystectomy, (35733). 2. Drainage of pericholecystic abscess, (77285). 3. Repair of incarcerated umbilical hernia, (74019). ANESTHESIA: General. INDICATIONS FOR PROCEDURE: This 62-year-old was admitted overnight with acute cholecystitis. Plan is to proceed with a laparoscopic or if necessary cholecystectomy and other procedures as indicated. Potential risks including bleeding, infection, injury to underlying viscera, problems with stones migrating in the common bile duct requiring additional procedures for correction as well as the possibility of cardiopulmonary, septic, or hemorrhagic complications leading to were discussed, and the patient wishes to proceed. DETAILS OF PROCEDURE: The patient was taken to the operating room and placed in a supine position. After general endotracheal anesthesia was induced, the abdomen was prepped and draped. Upon examination of the umbilicus, the patient was noted to have an umbilical hernia, which had some incarcerated preperitoneal fat in it. A transverse incision was made below the umbilicus, and the incarcerated contents were then excised. This allowed entrance of the abdomen with a 10-mm trocar, which then was used to inflate the peritoneal cavity to 15 mmHg pressure with CO2. Laparoscope was then reinserted. No underlying trocar insertion site injuries were seen. Following the 12-mm epigastric trocar, it was followed by a 5-mm right abdominal trocar being placed. The upper abdomen was examined. The patient was noted to have a markedly inflamed gallbladder with patchy areas of necrosis. Posterior to this, there was purulent fluid collection with associated localized peritonitis. Cultures of this were obtained. The gallbladder was then retracted anteriorly and laterally, and dissection began on the gallbladder neck with Harmonic scalpel and continued around the gallbladder neck-cystic duct junction. Once that area as well as the adjacent cystic artery were both clearly identified, it was felt that the cystic duct especially was quite friable and will be best managed by means of a ARVIN load. Both artery and cystic duct-gallbladder neck junction were then divided with a ARVIN purple load. This was then allowed dissection of the gallbladder off the gallbladder bed using Harmonic scalpel. This was delivered through a specimen bag in the epigastrium, which needed to be enlarged somewhat due to the marked thickness of the gallbladder. At that point, no further problems were noted. 10-[place] Maurizio-Lakhani drain was then placed adjacent to the gallbladder bed and area of the pericholecystic abscess and taken out through a right lateral trocar site. Fascia at the epigastric site was then approximated initially with placement of sutures of 0 Vicryl stitch. The trocar was then placed back into that location, and the repair of the umbilical hernia was then accomplished with a series of 0 Vicryl sutures being placed with a transverse orientation with the laparoscopic suture passer. Once these were in place, the peritoneal cavity was deflated, and the remaining trocars were removed. The fascia at each site was then closed with . Subcutaneous tissue at the epigastric site was packed open for a planned secondary closure. The remaining umbilical hernia site was closed at skin level with a 4-0 Vicryl skin stitch. Dressing was applied. The patient was taken to the recovery room in a satisfactory condition. Dre Barclay MD /[id number]
== END 2017-10-05 10:15 | disposition home or self-care (01) | DRG 418 ==
LOC: JP.ED 10:45 → JP.MS 14:47
PROVIDERS: ADMIT Internal Medicine; ATTEND Internal Medicine
PROC: 0FT44ZZ Resection of Gallbladder, Percutaneous Endoscopic Approach (ICD-10-PCS; principal; 2017-10-03)
PROC: 0W9G30Z Drainage of Peritoneal Cavity with Drainage Device, Percutaneous Approach (ICD-10-PCS; 2017-10-03)
PROC: 0WQF0ZZ Repair Abdominal Wall, Open Approach (ICD-10-PCS; 2017-10-03)
DX: K80.00 Calculus of gallbladder with acute cholecystitis without obstruction (principal); K42.0 Umbilical hernia with obstruction, without gangrene; I10 Essential (primary) hypertension; E78.00 Pure hypercholesterolemia, unspecified; R10.11 Right upper quadrant pain; R11.2 Nausea with vomiting, unspecified; Z86.711 Personal history of pulmonary embolism; I69.998 Other sequelae following unspecified cerebrovascular disease; H54.8 Legal blindness, as defined in USA; Z79.82 Long term (current) use of aspirin; Z88.5 Allergy status to narcotic agent
CPT/HCPCS: 36415; 74177 ×2; 76705 ×2; 80053; 83605; 83690; 84484; 85025; 96361; 96374; 96376; 99285; J2405; J3010 ×2; J7030; J7050 ×2; J7120; 81001; 82247; 84075; 85027; 87070; 87075; 87077; 87186; 87205; 88302; 88304; 99283; A9270-GY; C9113; J0171; J0330; J1100; J1170; J1650; J2543; J2704; J2710; J2795; J7042